=== PATIENT | male | born 1985 | race Caucasian/White ===

== ENCOUNTER 2016-08-03 13:45 | Emergency (ER) | payer OTHER ==
[~2016-08-03] VITALS: Ht 177.8 cm; Wt 63.6 kg
[~2016-08-03 13:45] MED LIST: ADVIL200 MG PO; AMOXICILLIN 8751 TAB; ATARAX 25MG25 MG/TAB PO; CEPHALEXIN500 M1 PO; CLARITIN 1010 MG/TAB PO; FLEXERIL5 MG PO; FLOMAX 0.40.4 MG/CAP PO; MOTRIN800 MG PO; NO HOME MEDICATIONS; NORCO 325 MG-51 TAB PO; PERCOCET 325 MG1 TA2 PO; PREDNISONE20 MG PO; ULTRAM 50MG TAB50 MG PO; VERMOX100 MG PO; VICODIN 5/5001 UDTAB PO; ZOFRAN8 MG PO
[2016-08-03 13:49] VITALS: TEMP 97.7
[2016-08-03 15:26] LABS: BASO % 0.4 % (0.0-2.0); EOS # 0.1 (0.0-0.7); EOS % 0.7 % (0-4.0); GRAN # 4.8 (1.4-6.5); GRAN % 70.2 % (42.2-75.2); HEMOGLOBIN 14.8 g/dl (13.5-18.0); LYMPH # 1.3 (1.2-3.4); LYMPH % 19.2 % (20.0-51.0); MEAN CELL VOLUME 87 fl (80.0-100.0); MEAN CORPUSCULAR HEMOGLOBIN 29 pg (27.0-31.0); MEAN CORPUSCULAR HGB CONC 34 g/dl (33.0-37.0); MONO # 0.6 (0.1-0.6); MONO % 9.1 % (1.7-9.3); PLATELET COUNT 144 K/mm3 (130-400); RED BLOOD COUNT 5.06 M/mm3 (4.20-5.60); REDCELL DISTRIBUTION WIDTH-CV 12.7 % (11.5-14.5); WHITE BLOOD COUNT 6.9 K/mm3 (4.8-10.8)
[2016-08-03 15:35] LABS: ADJUSTED CALCIUM 8.8 mg/dL (8.4-10.2); ALANINE AMINOTRANSFERASE 38 U/L (21-72); ALBUMIN 4.5 gm/dL (3.5-5.0); ALKALINE PHOSPHATASE 50 U/L (50-136); ANION GAP 10 mmol/L (7-16); BILIRUBIN,TOTAL 1.1 mg/dL (0.0-1.0); BLOOD UREA NITROGEN 14 mg/dL (9-20); CALCIUM 9.2 mg/dL (8.4-10.2); CARBON DIOXIDE 26 mmol/L (22-30); CHLORIDE 103 mmol/L (98-107); CREATININE, serum 1.16 mg/dL (0.66-1.25); GLUCOSE 80 mg/dL (74-106); POTASSIUM 4.5 mmol/L (3.4-5.0); SODIUM 139 mmol/L (137-145); TOTAL PROTEIN 7.3 gm/dL (6.4-8.2)
[2016-08-03 15:46] LABS: PH 7 (5-8); SQUAMOUS EPITHELIAL 0-2 /hpf; URINE APPEARANCE Clear; URINE BACTERIA None Seen /hpf; URINE BILIRUBIN Negative (NEGATIVE); URINE BLOOD Negative (NEGATIVE); URINE COLOR Yellow; URINE GLUCOSE Negative (NEGATIVE); URINE KETONE Negative (NEGATIVE); URINE RBC None Seen /hpf; URINE UROBILINOGEN Negative (NEGATIVE); URINE WBC 0-2 /hpf
[2016-08-03 16:03] LABS: AMPHETAMINE URINE NEGATIVE; BARBITURATES URINE NEGATIVE; BENZODIAZEPINES URINE POSITIVE; BUPRENORPHINE URINE NEGATIVE; METHADONE URINE NEGATIVE; OPIATES URINE NEGATIVE; OXYCODONE URINE NEGATIVE; PHENCYCLIDINE URINE NEGATIVE; PROPOXYPHENE URINE NEGATIVE; THC CANNABINOIDS URINE NEGATIVE
[2016-08-03 16:20] LABS: C-REACTIVE PROTEIN < 0.5 mg/dL (0.0-0.9)
[2016-08-03] MEDS ORDERED: PHENERGAN 25 TA25 MG PO (17:04)
[2016-08-03 17:30] VITALS: BP 119/74; PULSE 76
== END 2016-08-03 17:32 | disposition home or self-care (01) ==
LOC: COL.ER 13:45
PROVIDERS: Nurse Practitioner
DX: R51 Headache (principal); R11.0 Nausea; M54.2 Cervicalgia; Z85.47 Personal history of malignant neoplasm of testis; F17.210 Nicotine dependence, cigarettes, uncomplicated
CPT/HCPCS: J1170; J1200; J2060; J2405; J3010; J7030

== ENCOUNTER 2017-05-06 14:35 | Emergency (ER) | payer SELFPAY ==
[~2017-05-06] VITALS: Ht 177.8 cm; Wt 63.6 kg
[~2017-05-06 14:35] MED LIST changes: +PHENERGAN 25 TA25 MG PO
[2017-05-06 14:43] VITALS: BP 128/60; PULSE 73; TEMP 98.5
[2017-05-06] MEDS ORDERED: ZOFRAN ODT4 MG PO (16:52)
== END 2017-05-06 16:57 | disposition home or self-care (01) ==
LOC: COL.ER 14:35
DX: G43.909 Migraine, unspecified, not intractable, without status migrainosus (principal); F17.290 Nicotine dependence, other tobacco product, uncomplicated; Z85.47 Personal history of malignant neoplasm of testis
CPT/HCPCS: J1170; J1200; J1885; J2405; J7030

== ENCOUNTER 2017-06-21 13:58 | Emergency (ER) | payer SELFPAY ==
[~2017-06-21] VITALS: Ht 177.8 cm; Wt 65.3 kg
[~2017-06-21 13:58] MED LIST changes: +ZOFRAN ODT4 MG PO
[2017-06-21 14:02] VITALS: TEMP 97.8
[2017-06-21] MEDS ORDERED: PREDNISONE20 MG PO (14:32)
[2017-06-21 16:43] VITALS: BP 108/66; PULSE 58
== END 2017-06-21 16:45 | disposition home or self-care (01) ==
LOC: COL.ER 13:58
DX: R06.00 Dyspnea, unspecified (principal); T78.40XA Allergy, unspecified, initial encounter; Z85.47 Personal history of malignant neoplasm of testis
CPT/HCPCS: J1200; J2930; J7030

== ENCOUNTER → 2017-08-19 | Outpatient (CLI) | payer SELFPAY ==
[~2017-08-19] VITALS: Ht 177.8 cm; Wt 64.0 kg
[2017-08-19 13:07] VITALS: BP 106/72; PULSE 61
[2017-08-19 14:50] VITALS: BP 108/75; PULSE 57
== END ==
LOC: COL.RAD 12:44
DX: R22.1 Localized swelling, mass and lump, neck (principal); F17.200 Nicotine dependence, unspecified, uncomplicated; Z85.47 Personal history of malignant neoplasm of testis

== ENCOUNTER → 2017-08-21 | Outpatient (CLI) | payer SELFPAY | LOC: COL.RAD 10:59 | DX: R22.1 Localized swelling, mass and lump, neck (principal) | CPT/HCPCS: Q9967 ==

== ENCOUNTER → 2017-10-02 | Outpatient (CLI) | payer SELFPAY | LOC: COL.RAD 13:21 | DX: C62.12 Malignant neoplasm of descended left testis (principal); R22.2 Localized swelling, mass and lump, trunk ==

== ENCOUNTER → 2017-12-04 | Outpatient (CLI) | payer SELFPAY | LOC: COL.RAD 08:15 | DX: C62.12 Malignant neoplasm of descended left testis (principal) | CPT/HCPCS: Q9967 ==

== ENCOUNTER 2018-11-30 09:55 | Emergency (ER) | payer SELFPAY ==
[~2018-11-30] VITALS: Ht 177.8 cm; Wt 61.4 kg
[2018-11-30 10:00] VITALS: TEMP 98.2
[2018-11-30 10:27] LABS: COLLECTION METHOD CLEAN CATCH
[2018-11-30 10:31] LABS: BASO % 0.7 % (0.0-2.0); EOS % 0.7 % (0-4.0); GRAN # 2.7 (1.4-6.5); GRAN % 64.6 % (42.2-75.2); HEMATOCRIT 42.1 % (42.0-52.0); HEMOGLOBIN 14.5 g/dl (13.5-18.0); LYMPH # 1.1 (1.2-3.4); LYMPH % 26.7 % (20.0-51.0); MEAN CELL VOLUME 86 fl (80.0-100.0); MEAN CORPUSCULAR HEMOGLOBIN 30 pg (27.0-31.0); MEAN CORPUSCULAR HGB CONC 34 g/dl (33.0-37.0); MONO # 0.3 (0.1-0.6); MONO % 7.1 % (1.7-9.3); PLATELET COUNT 140 K/mm3 (130-400); RED BLOOD COUNT 4.89 M/mm3 (4.20-5.60); REDCELL DISTRIBUTION WIDTH-CV 12.3 % (11.5-14.5)
[2018-11-30 10:39] LABS: PH 7 (5-8); SQUAMOUS EPITHELIAL None Seen /hpf; URINE APPEARANCE Clear; URINE BACTERIA None Seen /hpf; URINE BILIRUBIN Negative (NEGATIVE); URINE BLOOD Negative (NEGATIVE); URINE COLOR Yellow; URINE GLUCOSE Negative (NEGATIVE); URINE KETONE Negative (NEGATIVE); URINE LEUKOCYTE ESTERASE Negative (NEGATIVE); URINE NITRATE Negative (NEGATIVE); URINE PROTEIN(semi-quant) Negative (NEGATIVE); URINE RBC 0-2 /hpf; URINE UROBILINOGEN Negative (NEGATIVE)
[2018-11-30 11:03] LABS: ALANINE AMINOTRANSFERASE 18 U/L (21-72); ALBUMIN 4.7 gm/dL (3.5-5.0); ALKALINE PHOSPHATASE 52 U/L (50-136); ANION GAP 10 mmol/L (7-16); AST,SGOT 31 U/L (15-37); BILIRUBIN,TOTAL 0.8 mg/dL (0.0-1.0); BLOOD UREA NITROGEN 17 mg/dL (9-20); CALCIUM 9.6 mg/dL (8.4-10.2); CARBON DIOXIDE 26 mmol/L (22-30); CHLORIDE 104 mmol/L (98-107); CREATININE, serum 1.22 (0.66-1.25); GLUCOSE 81 mg/dL (74-106); LIPASE 80 U/L (23-300); POTASSIUM 4.6 mmol/L (3.4-5.0); SODIUM 140 mmol/L (137-145); TOTAL PROTEIN 7.6 gm/dL (6.4-8.2)
[2018-11-30 11:08] LABS: C-REACTIVE PROTEIN < 0.5 mg/dL (0.0-0.9)
[2018-11-30] MEDS ORDERED: ZOFRAN ODT8 MG PO (11:45)
[2018-11-30 13:00] VITALS: BP 103/61; PULSE 62
== END 2018-11-30 13:00 | disposition home or self-care (01) ==
LOC: COL.ER 09:55
PROVIDERS: Emergency Medicine
DX: R10.9 Unspecified abdominal pain (principal)
CPT/HCPCS: C9113; J1170; J1630; J1885; J2550; J7030; Q9967

== ENCOUNTER 2019-01-24 11:30 | Emergency (ER) | payer SELFPAY ==
[~2019-01-24] VITALS: Ht 177.8 cm; Wt 63.6 kg
[~2019-01-24 11:30] MED LIST changes: +ZOFRAN ODT8 MG PO
[2019-01-24 11:38] VITALS: TEMP 98.1
[2019-01-24 13:18] VITALS: BP 117/79; PULSE 59
== END 2019-01-24 13:19 | disposition home or self-care (01) ==
LOC: COL.ER 11:30
DX: S09.90XA Unspecified injury of head, initial encounter (principal); S16.1XXA Strain of muscle, fascia and tendon at neck level, initial encounter; F17.210 Nicotine dependence, cigarettes, uncomplicated; R40.2412 Glasgow coma scale score 13-15, at arrival to emergency department; W22.8XXA Striking against or struck by other objects, initial encounter; Y92.59 Other trade areas as the place of occurrence of the external cause
CPT/HCPCS: J1885; J2550

== ENCOUNTER 2019-04-29 10:15 | Outpatient (RCR) | payer OTHER | END 2019-06-27 | disposition home or self-care (01) | LOC: WSPT | DX: S06.0X0A Concussion without loss of consciousness, initial encounter (principal); S13.4XXA Sprain of ligaments of cervical spine, initial encounter; H51.11 Convergence insufficiency; G44.309 Post-traumatic headache, unspecified, not intractable | CPT/HCPCS: G0283-GP ==

== ENCOUNTER 2019-09-01 11:12 | Emergency (ER) | payer SELFPAY ==
[~2019-09-01] VITALS: Ht 177.8 cm; Wt 63.6 kg
[2019-09-01 11:40] VITALS: TEMP 98.4
[2019-09-01 12:35] LABS: BASO % 0.8 % (0.0-2.0); EOS # 0.1 (0.0-0.7); GRAN # 3.1 (1.4-6.5); GRAN % 61.5 % (42.2-75.2); HEMATOCRIT 43.5 % (42.0-52.0); HEMOGLOBIN 14.9 g/dl (13.5-18.0); LYMPH # 1.4 (1.2-3.4); MEAN CELL VOLUME 87 fl (80.0-100.0); MEAN CORPUSCULAR HEMOGLOBIN 30 pg (27.0-31.0); MEAN CORPUSCULAR HGB CONC 34 g/dl (33.0-37.0); MEAN PLATELET VOLUME 10.5 fl (7.4-10.4); MONO # 0.5 (0.1-0.6); MONO % 8.9 % (1.7-9.3); PLATELET COUNT 162 K/mm3 (130-400); REDCELL DISTRIBUTION WIDTH-CV 12.4 % (11.5-14.5)
[2019-09-01 12:43] LABS: ALBUMIN 4.7 gm/dL (3.5-5.0); BILIRUBIN,TOTAL 0.6 mg/dL (0.0-1.0); CALCIUM 9.4 mg/dL (8.4-10.2); CREATININE, serum 1.04 (0.66-1.25); POTASSIUM 4.1 mmol/L (3.4-5.0); TOTAL PROTEIN 7.7 gm/dL (6.4-8.2)
[2019-09-01 13:54] LABS: COLLECTION METHOD CLEAN CATCH
[2019-09-01 14:00] LABS: PH 5 (5-8); SQUAMOUS EPITHELIAL 0-2 /hpf; URINE APPEARANCE Clear; URINE BACTERIA None Seen /hpf; URINE BILIRUBIN Negative (NEGATIVE); URINE BLOOD Negative (NEGATIVE); URINE COLOR Yellow; URINE GLUCOSE Negative (NEGATIVE); URINE KETONE Negative (NEGATIVE); URINE LEUKOCYTE ESTERASE Negative (NEGATIVE); URINE NITRATE Negative (NEGATIVE); URINE PROTEIN(semi-quant) Negative (NEGATIVE); URINE RBC 0-2 /hpf; URINE UROBILINOGEN Negative (NEGATIVE)
[2019-09-01 16:37] VITALS: BP 105/60; PULSE 51
== END 2019-09-01 16:40 | disposition home or self-care (01) ==
LOC: COL.ER 11:12
PROVIDERS: Physician Assistant
DX: R10.9 Unspecified abdominal pain (principal); F17.210 Nicotine dependence, cigarettes, uncomplicated; Z87.442 Personal history of urinary calculi; Z88.5 Allergy status to narcotic agent; Z88.6 Allergy status to analgesic agent
CPT/HCPCS: J1170; J1885; J2405; J2550; J7030; Q9967

== ENCOUNTER 2019-09-10 17:50 | Emergency (ER) | payer SELFPAY ==
[~2019-09-10] VITALS: Ht 177.8 cm; Wt 63.6 kg
[2019-09-10 20:20] LABS: COLLECTION METHOD CLEAN CATCH
[2019-09-10 20:49] LABS: PH 7 (5-8); SQUAMOUS EPITHELIAL None Seen /hpf; URINE APPEARANCE Clear; URINE BACTERIA None Seen /hpf; URINE BILIRUBIN Negative (NEGATIVE); URINE BLOOD 2+ (NEGATIVE); URINE COLOR Straw; URINE GLUCOSE Negative (NEGATIVE); URINE KETONE Negative (NEGATIVE); URINE LEUKOCYTE ESTERASE Negative (NEGATIVE); URINE NITRATE Negative (NEGATIVE); URINE PROTEIN(semi-quant) Negative (NEGATIVE); URINE UROBILINOGEN Negative (NEGATIVE)
[2019-09-10 20:51] VITALS: BP 105/71; PULSE 64; TEMP 98.7
[2019-09-10] MEDS ORDERED: ULTRAM 50MG TAB50 MG PO (22:06)
== END 2019-09-10 22:20 | disposition home or self-care (01) ==
LOC: COL.ER 17:50
PROVIDERS: Physician Assistant
DX: S06.0X9A Concussion with loss of consciousness of unspecified duration, initial encounter (principal); M54.5 Low back pain; M25.562 Pain in left knee; R40.2412 Glasgow coma scale score 13-15, at arrival to emergency department; Z85.47 Personal history of malignant neoplasm of testis; W17.89XA Other fall from one level to another, initial encounter; Y92.59 Other trade areas as the place of occurrence of the external cause
CPT/HCPCS: J1885; J2360; J3010

== ENCOUNTER 2019-09-20 08:30 | Outpatient (RCR) | payer OTHER | END 2019-12-11 | disposition home or self-care (01) | LOC: WSOH | DX: S80.02XA Contusion of left knee, initial encounter (principal); S30.0XXA Contusion of lower back and pelvis, initial encounter; S00.83XA Contusion of other part of head, initial encounter; W18.43XA Slipping, tripping and stumbling without falling due to stepping from one level to another, initial encounter; Y99.0 Civilian activity done for income or pay ==

== ENCOUNTER 2020-01-03 12:00 | Emergency (ER) | payer SELFPAY ==
[~2020-01-03] VITALS: Ht 177.8 cm; Wt 63.6 kg
[2020-01-03 12:55] VITALS: TEMP 97.6
[2020-01-03 13:21] LABS: BASO % 0.5 % (0.0-2.0); EOS % 1.1 % (0-4.0); GRAN # 2.2 (1.4-6.5); GRAN % 59.5 % (42.2-75.2); HEMATOCRIT 43.8 % (42.0-52.0); HEMOGLOBIN 14.9 g/dl (13.5-18.0); LYMPH % 27.9 % (20.0-51.0); MEAN CELL VOLUME 86 fl (80.0-100.0); MEAN CORPUSCULAR HEMOGLOBIN 29 pg (27.0-31.0); MEAN CORPUSCULAR HGB CONC 34 g/dl (33.0-37.0); MEAN PLATELET VOLUME 11.4 fl (7.4-10.4); MONO # 0.4 (0.1-0.6); MONO % 10.7 % (1.7-9.3); PLATELET COUNT 106 K/mm3 (130-400); RED BLOOD COUNT 5.07 M/mm3 (4.20-5.60); REDCELL DISTRIBUTION WIDTH-CV 11.9 % (11.5-14.5)
[2020-01-03 13:29] LABS: ALANINE AMINOTRANSFERASE 20 U/L (4-49); ALBUMIN 4.8 gm/dL (3.5-5.0); ALKALINE PHOSPHATASE 39 U/L (50-136); ANION GAP 9 mmol/L (7-16); AST,SGOT 31 U/L (15-37); BILIRUBIN,TOTAL 0.6 mg/dL (0.0-1.0); BLOOD UREA NITROGEN 16 mg/dL (9-20); CALCIUM 9.2 mg/dL (8.4-10.2); CARBON DIOXIDE 26 mmol/L (22-30); CHLORIDE 102 mmol/L (98-107); GLUCOSE 84 mg/dL (74-106); POTASSIUM 4.4 mmol/L (3.4-5.0); SODIUM 137 mmol/L (137-145)
[2020-01-03 13:43] LABS: TROPONIN-I < 0.012 ng/mL (0.000-0.035)
[2020-01-03] MEDS ORDERED: ZITHROMAX Z PA250 MG PO (14:20)
[2020-01-03] MEDS ORDERED: PREDNISONE20 MG PO (14:20)
[2020-01-03 14:30] VITALS: BP 104/64; PULSE 49
== END 2020-01-03 14:30 | disposition home or self-care (01) ==
LOC: COL.ER 12:00
PROVIDERS: Physician Assistant
DX: U07.1 COVID-19 (principal); F17.210 Nicotine dependence, cigarettes, uncomplicated; Z85.47 Personal history of malignant neoplasm of testis; Z88.6 Allergy status to analgesic agent; Z87.442 Personal history of urinary calculi
CPT/HCPCS: J1170; J1885; J7030

== ENCOUNTER 2020-03-20 16:37 | Emergency (ER) | payer SELFPAY ==
[~2020-03-20] VITALS: Ht 177.8 cm; Wt 63.6 kg
[~2020-03-20 16:37] MED LIST changes: +ZITHROMAX Z PA250 MG PO
[2020-03-20 16:46] VITALS: TEMP 98.9
[2020-03-20] MEDS ORDERED: TYLENOL 325MG325 MG PO (17:11)
[2020-03-20 17:34] VITALS: BP 120/71; PULSE 73
== END 2020-03-20 17:34 | disposition home or self-care (01) ==
LOC: COL.ER 16:37
DX: S93.102A Unspecified subluxation of left toe(s), initial encounter (principal); Z85.47 Personal history of malignant neoplasm of testis; Z85.79 Personal history of other malignant neoplasms of lymphoid, hematopoietic and related tissues; Z88.5 Allergy status to narcotic agent; Z88.6 Allergy status to analgesic agent; X50.1XXA Overexertion from prolonged static or awkward postures, initial encounter; Y93.01 Activity, walking, marching and hiking; Y99.0 Civilian activity done for income or pay

== ENCOUNTER 2020-04-17 09:42 | Emergency (ER) | payer SELFPAY ==
[~2020-04-17] VITALS: Ht 177.8 cm; Wt 63.6 kg
[~2020-04-17 09:42] MED LIST changes: +TYLENOL 325MG325 MG PO
[2020-04-17 09:51] VITALS: BP 109/62; TEMP 97.9
[2020-04-17 11:04] LABS: STREP SCREEN NEGATIVE
[2020-04-17] MEDS ORDERED: TYLENOL 325MG325 MG PO (11:44)
[2020-04-17 12:12] VITALS: PULSE 77
== END 2020-04-17 12:15 | disposition home or self-care (01) ==
LOC: COL.ER 09:42
PROVIDERS: Emergency Medicine
DX: J02.9 Acute pharyngitis, unspecified (principal); Z86.16 Personal history of COVID-19; Z88.6 Allergy status to analgesic agent

== ENCOUNTER 2020-05-27 20:09 | Emergency (ER) | payer SELFPAY ==
[~2020-05-27] VITALS: Ht 177.8 cm; Wt 65.9 kg
[2020-05-27 20:26] LABS: COLLECTION METHOD CLEAN CATCH
[2020-05-27 20:39] LABS: AMORPHOUS CRYSTAL Present /uL; PH 7 (5-8); SQUAMOUS EPITHELIAL None Seen /hpf; URINE APPEARANCE Cloudy; URINE BACTERIA None Seen /hpf; URINE BILIRUBIN Negative (NEGATIVE); URINE BLOOD Negative (NEGATIVE); URINE COLOR Yellow; URINE GLUCOSE Negative (NEGATIVE); URINE KETONE Negative (NEGATIVE); URINE LEUKOCYTE ESTERASE Negative (NEGATIVE); URINE NITRATE Negative (NEGATIVE); URINE PROTEIN(semi-quant) Negative (NEGATIVE); URINE RBC 0-2 /hpf; URINE UROBILINOGEN Negative (NEGATIVE)
[2020-05-27 20:41] LABS: BASO % 0.6 % (0.0-2.0); EOS # 0.1 (0.0-0.7); EOS % 1.4 % (0-4.0); GRAN # 3.9 (1.4-6.5); GRAN % 58.5 % (42.2-75.2); HEMATOCRIT 45.3 % (42.0-52.0); HEMOGLOBIN 15.6 g/dl (13.5-18.0); LYMPH # 2.1 (1.2-3.4); LYMPH % 31.6 % (20.0-51.0); MEAN CELL VOLUME 85 fl (80.0-100.0); MEAN CORPUSCULAR HEMOGLOBIN 29 pg (27.0-31.0); MEAN CORPUSCULAR HGB CONC 34 g/dl (33.0-37.0); MEAN PLATELET VOLUME 10.4 fl (7.4-10.4); MONO # 0.5 (0.1-0.6); MONO % 7.7 % (1.7-9.3); PLATELET COUNT 206 K/mm3 (130-400); RED BLOOD COUNT 5.34 M/mm3 (4.20-5.60); REDCELL DISTRIBUTION WIDTH-CV 12.1 % (11.5-14.5)
[2020-05-27 20:48] LABS: ALBUMIN 4.9 gm/dL (3.5-5.0); BILIRUBIN,TOTAL 0.6 mg/dL (0.0-1.0); CALCIUM 10.1 mg/dL (8.4-10.2); CREATININE, serum 1.23 (0.66-1.25); POTASSIUM 4.2 mmol/L (3.4-5.0); TOTAL PROTEIN 8.5 gm/dL (6.4-8.2)
[2020-05-27] MEDS ORDERED: TYLENOL 325MG325 MG PO (21:54)
[2020-05-27] MEDS ORDERED: FLOMAX 0.40.4 MG/CAP PO (21:54)
[2020-05-27 22:00] VITALS: BP 120/81; PULSE 81
== END 2020-05-27 22:00 | disposition home or self-care (01) ==
LOC: COL.ER 20:09
PROVIDERS: Emergency Medicine
DX: N20.0 Calculus of kidney (principal); Z87.442 Personal history of urinary calculi; Z88.6 Allergy status to analgesic agent
CPT/HCPCS: J1630; J1885; J2060; J2405

== ENCOUNTER 2023-01-28 13:06 | Emergency (ER) | payer MEDICAID ==
[~2023-01-28] VITALS: Ht 177.8 cm; Wt 60.9 kg
[~2023-01-28 13:06] MED LIST changes: +BENTYL 20MG20 MG/TAB PO; +CEFTIN 250250 MG/TAB PO; +LODOCO0.5 MG PO; +PEPCID 20MG TAB20 MG PO; +ROXICODONE 55 MG/TAB PO
[2023-01-28 17:22] VITALS: BP 115/83; PULSE 68
== END 2023-01-28 17:26 | disposition home or self-care (01) ==
LOC: COL.ER 13:06
DX: M54.50 Low back pain, unspecified (principal)
CPT/HCPCS: J1170; J1885; J2270

== ENCOUNTER → 2023-04-08 | Outpatient (CLI) | payer MEDICAID ==
[2023-04-08 15:50] LABS: BASO % 0.8 % (0.0-2.0); EOS # 0.1 K/mm3 (0.0-0.7); GRAN # 2.9 K/mm3 (1.4-6.5); GRAN % 59.9 % (42.2-75.2); HEMATOCRIT 40.1 % (42.0-52.0); HEMOGLOBIN 14.1 g/dl (13.5-18.0); LYMPH # 1.5 K/mm3 (1.2-3.4); LYMPH % 30.3 % (20.0-51.0); MEAN CELL VOLUME 83 fl (80.0-100.0); MEAN CORPUSCULAR HEMOGLOBIN 29 pg (27-31); MEAN CORPUSCULAR HGB CONC 35 g/dl (33.0-37.0); MONO # 0.4 K/mm3 (0.1-0.6); MONO % 7.8 % (1.7-9.3); PLATELET COUNT 217 K/mm3 (130-400); RED BLOOD COUNT 4.83 M/mm3 (4.20-5.60); REDCELL DISTRIBUTION WIDTH-CV 11.9 % (11.5-14.5)
[2023-04-08 16:04] LABS: ALBUMIN 4.2 gm/dL (3.5-5.0); BILIRUBIN,TOTAL 0.5 mg/dL (0.2-1.2); CALCIUM 9.5 mg/dL (8.4-10.2); CREATININE, serum 1.38 mg/dL (0.72-1.25); POTASSIUM 4.1 mmol/L (3.5-4.5); TOTAL PROTEIN 6.8 gm/dL (6.2-8.1)
== END ==
LOC: COL.LAB 15:28
PROVIDERS: Orthopaedic Surgery
DX: D49.2 Neoplasm of unspecified behavior of bone, soft tissue, and skin (principal)

== ENCOUNTER 2023-05-18 16:12 | Emergency (ER) | payer MEDICAID ==
[~2023-05-18] VITALS: Ht 177.8 cm; Wt 61.4 kg
[2023-05-18 16:16] VITALS: TEMP 97.7
[2023-05-18] MEDS ORDERED: Magnesium Sulfate 4% 50 ML IV ONE ×2 (17:45→18:15)
[2023-05-18] MEDS ORDERED: diphenhydrAMINE 50 MG/ML 1 ML VIAL IV ONE (17:45)
[2023-05-18] MEDS ORDERED: Ketorolac 30 MG/ML VIAL IV ONE (17:45)
[2023-05-18] MEDS ORDERED: NS 500 ML IV ONE (17:45)
[2023-05-18] MEDS ORDERED: dexAMETHasone 10 MG/ML VIAL IV ONE (17:45)
[2023-05-18 19:23] VITALS: BP 110/69; PULSE 80
== END 2023-05-18 19:23 | disposition home or self-care (01) ==
LOC: COL.ER 16:12
DX: G43.009 Migraine without aura, not intractable, without status migrainosus (principal); Z87.891 Personal history of nicotine dependence
CPT/HCPCS: J1100; J1200; J1885; J2765; J3475; J7040

== ENCOUNTER 2023-08-18 10:02 | Emergency (ER) | payer BC ==
[~2023-08-18] VITALS: Ht 177.8 cm; Wt 61.8 kg
[2023-08-18 10:04] VITALS: TEMP 98
[2023-08-18] MEDS ORDERED: Ondansetron 4 MG/2 ML VIAL IV ONE (10:30)
[2023-08-18] MEDS ORDERED: Morphine 4 MG/ML VIAL IV ONE ×2 (10:30→11:30)
[2023-08-18] MEDS ORDERED: NS 1,000 ML IV ONE (10:30)
[2023-08-18 10:39] LABS: COLLECTION METHOD CLEAN CATCH
[2023-08-18 10:44] LABS: BASO # 0.1 K/mm3 (0.0-0.2); EOS # 0.1 K/mm3 (0.0-0.7); EOS % 1.1 % (0.0-4.0); GRAN # 3.3 K/mm3 (1.4-6.5); GRAN % 62.7 % (42.2-75.2); HEMATOCRIT 47.5 % (42.0-52.0); HEMOGLOBIN 16.3 g/dl (13.5-18.0); LYMPH # 1.4 K/mm3 (1.2-3.4); LYMPH % 27.2 % (20.0-51.0); MEAN CELL VOLUME 83 fl (80.0-100.0); MEAN CORPUSCULAR HEMOGLOBIN 29 pg (27-31); MEAN CORPUSCULAR HGB CONC 34 g/dl (33.0-37.0); MEAN PLATELET VOLUME 10.6 fl (7.4-10.4); MONO # 0.4 K/mm3 (0.1-0.6); MONO % 7.8 % (1.7-9.3); PLATELET COUNT 193 K/mm3 (130-400); RED BLOOD COUNT 5.72 M/mm3 (4.20-5.60); REDCELL DISTRIBUTION WIDTH-CV 12.2 % (11.5-14.5)
[2023-08-18 11:07] LABS: ALBUMIN 4.1 g/dL (3.5-5.0); BILIRUBIN,TOTAL 0.8 mg/dL (0.2-1.2); C-REACTIVE PROTEIN 0.03 mg/dL (0.00-0.50); CALCIUM 9.8 mg/dL (8.4-10.2); CREATININE, serum 1.32 mg/dL (0.72-1.25); POTASSIUM 4.4 mEq/L (3.5-4.5); TOTAL PROTEIN 6.6 g/dl (6.2-8.1)
[2023-08-18 11:27] LABS: PH 7.5 (5.0-8.5); URINE APPEARANCE CLEAR (CLEAR/HAZY); URINE BLOOD NEGATIVE (NEGATIVE); URINE COLOR YELLOW (YELLOW); URINE GLUCOSE NEGATIVE (NEGATIVE); URINE KETONE NEGATIVE (NEGATIVE); URINE NITRATE NEGATIVE (NEGATIVE); URINE PROTEIN(semi-quant) NEGATIVE (NEGATIVE); URINE UROBILINOGEN 0.2 E.U/dL (0.2-1.0)
[2023-08-18] MEDS ORDERED: diphenhydrAMINE 50 MG/ML 1 ML VIAL IV ONE (11:45)
[2023-08-18] MEDS ORDERED: methylPREDNISolone Sod Succ 125 MG/2 ML VIAL IV ONE (11:45)
[2023-08-18 13:50] VITALS: BP 104/62; PULSE 64
== END 2023-08-18 13:54 | disposition home or self-care (01) ==
LOC: COL.ER 10:02
PROVIDERS: Nurse Practitioner
DX: R10.32 Left lower quadrant pain (principal)
CPT/HCPCS: J1200; J2270; J2405; J2919; J7030